=== PATIENT | female | born 1960 | race Caucasian/White ===

== ENCOUNTER → 2024-01-16 13:27 | Outpatient (REF) | payer MEDICARE, SELFPAY | LOC: WDC 13:27 | PROVIDERS: ATTENDING PHYSICIAN Family Medicine | DX: Z12.31 Encounter for screening mammogram for malignant neoplasm of breast (principal) | CPT/HCPCS: 77063; 77067 ==

== ENCOUNTER → 2024-12-17 10:38 | Outpatient (REF) | payer MEDICARE, SELFPAY | LOC: RAD 10:38 | PROVIDERS: ATTENDING PHYSICIAN Family Medicine | DX: Z78.0 Asymptomatic menopausal state (principal) | CPT/HCPCS: 77080 ==

== ENCOUNTER → 2025-01-20 16:53 | Outpatient (REF) | payer MEDICARE, SELFPAY | LOC: WDC 16:53 | PROVIDERS: ATTENDING PHYSICIAN Family Medicine | DX: Z12.31 Encounter for screening mammogram for malignant neoplasm of breast (principal) | CPT/HCPCS: 77063; 77067 ==

== ENCOUNTER → 2025-02-04 10:22 | Outpatient (REF) | payer MEDICARE, SELFPAY | LOC: WDC 10:22 | PROVIDERS: ATTENDING PHYSICIAN Nurse Practitioner Family; FAMILY PHYSICIAN Family Medicine | DX: R92.8 Other abnormal and inconclusive findings on diagnostic imaging of breast (principal) | CPT/HCPCS: 77065 ==